=== PATIENT | female | born 1935 | race African-American/Black ===

== ENCOUNTER 2017-03-18 17:29 | Inpatient (IN) | payer OTHER ==
[~2017-03-18] VITALS: Ht 170.2 cm; Wt 92.6 kg
[~2017-03-18 17:29] MED LIST: ALBU6.7H2 IH; ASPI-1159 PO; BUDE6HFA IH; GLYB5TAB7 PO; HYDR25TA PO; LEVO75TA7 PO; LISI-604 PO; PANT20TA3; PRED10TA PO; THEO80SO; TIOT18CA3 IH; [UNRECOGNIZED DRUG - CODE] PO
[2017-03-18 20:52] LABS: HEMATOCRIT. 21.8 % (36.0-48.0); MEAN CORPUSCULAR HEMOGLOBIN 27.8 pg (28.0-32.0); MEAN CORPUSCULAR VOLUME 88.2 fL (81.0-99.0); MEAN PLATELET VOLUME 6.3 fl (7.4-10.4); PLATELET 409 x1000/uL (130-400); RED BLOOD CELL COUNT 2.47 mill/uL (4.2-5.4); RED CELL DISTRIBUTION WIDTH 15.9 % (11.6-14.6)
[2017-03-18 20:57] LABS: HEMOGLOBIN. 6.9 g/dL (12.0-16.0)
[2017-03-18 21:01] LABS: CHLORIDE 106 mEq/L (98-107)
[2017-03-18 21:06] LABS: CARBON DIOXIDE 30 mEq/L (21-32)
[2017-03-18 21:11] LABS: PROTHROMBIN TIME 10.5 sec
[2017-03-18 21:11] LABS: CLARITY URINE CLEAR (CLEAR); COLOR URINE YELLOW (YELLOW); GLUCOSE URINE NEGATIVE (NEGATIVE); KETONES URINE NEGATIVE (NEGATIVE); LEUKOCYTE ESTERASE URINE NEGATIVE (NEGATIVE); NITRITE URINE NEGATIVE (NEGATIVE); OCCULT BLOOD URINE NEGATIVE (NEGATIVE); PH URINE 5.5 (4.5-8.0); PROTEIN URINE NEGATIVE (NEGATIVE); SPECIFIC GRAVITY URINE 1.015 (1.005-1.030); UROBILINOGEN URINE 0.2 E.U./dL (0.2-1.0)
[2017-03-18 21:12] LABS: PLATELET ESTIMATE INCREASED
[2017-03-18 22:40] VITALS: BP 126/46
[2017-03-19] VITALS (7 sets, daily range): BP systolic 104–130; BP diastolic 33–51
[2017-03-19] MEDS ORDERED: DEXTROSE 50% WATER 50ML SYRINGE IV PRN (00:45)
[2017-03-19] MEDS ORDERED: FUROSEMIDE 40MG/4ML VIAL IVP NR (01:13)
[2017-03-19] MEDS: THEOPHYLLINE ANHYDROUS 80 MG/15 ML 120ML PO SCH ×3 (05:15→17:43)
[2017-03-19] MEDS: BLOOD SUGAR DIAGNOSTIC STRIP TEST SCH ×4 (06:20→21:00)
[2017-03-19] MEDS: INSULIN LISPRO 100 UNITS/ML SUBCUT SCH ×4 (06:20→21:00)
[2017-03-19] MEDS: GLYBURIDE 5MG TABLET PO SCH ×2 (06:41→17:43)
[2017-03-19] MEDS: LEVOTHYROXINE SODIUM 75MCG TABLET PO SCH (06:41)
[2017-03-19 07:10] LABS: HEMATOCRIT. 23.3 % (36.0-48.0); HEMOGLOBIN. 7.3 g/dL (12.0-16.0); MEAN CORPUSCULAR HEMOGLOBIN 27.9 pg (28.0-32.0); MEAN CORPUSCULAR VOLUME 89.1 fL (81.0-99.0); MEAN PLATELET VOLUME 6.4 fl (7.4-10.4); PLATELET 420 x1000/uL (130-400); RED BLOOD CELL COUNT 2.62 mill/uL (4.2-5.4); RED CELL DISTRIBUTION WIDTH 15.7 % (11.6-14.6)
[2017-03-19 07:20] LABS: CARBON DIOXIDE 30 mEq/L (21-32); CHLORIDE 106 mEq/L (98-107)
[2017-03-19] MEDS: IPRATROPIUM/ALBUTEROL 0.5-3(2.5)MG/3ML NEB HHN SCH ×3 (08:05→21:39)
[2017-03-19] MEDS ORDERED: LISINOPRIL 20MG TABLET PO SCH (09:00)
[2017-03-19] MEDS ORDERED: ASPIRIN 81MG EC TABLET PO SCH (09:00)
[2017-03-19] MEDS ORDERED: THEOPHYLLINE ANHYDROUS 200 MG PO SCH (09:00)
[2017-03-19] MEDS ORDERED: HYDROCHLOROTHIAZIDE 25MG TABLET PO SCH (09:00)
[2017-03-19 13:44] LABS: PLATELET ESTIMATE INCREASED
[2017-03-20] VITALS (15 sets, daily range): BP systolic 110–135; BP diastolic 31–69
[2017-03-20] MEDS: IPRATROPIUM/ALBUTEROL 0.5-3(2.5)MG/3ML NEB HHN SCH ×4 (03:11→21:16)
[2017-03-20] MEDS: ACETAMINOPHEN 325MG TABLET PO PRN ×2 (03:57→15:37)
[2017-03-20] MEDS: INSULIN LISPRO 100 UNITS/ML SUBCUT SCH ×4 (06:22→20:50)
[2017-03-20] MEDS: BLOOD SUGAR DIAGNOSTIC STRIP TEST SCH ×4 (06:22→20:50)
[2017-03-20] MEDS: LEVOTHYROXINE SODIUM 75MCG TABLET PO SCH (06:22)
[2017-03-20] MEDS: THEOPHYLLINE ANHYDROUS 80 MG/15 ML 120ML PO SCH ×5 (06:23→23:45)
[2017-03-20] MEDS: GLYBURIDE 5MG TABLET PO SCH ×2 (06:25→17:54)
[2017-03-20 06:42] LABS: MEAN CORPUSCULAR HEMOGLOBIN 28.5 pg (28.0-32.0); MEAN CORPUSCULAR VOLUME 87.7 fL (81.0-99.0); MEAN PLATELET VOLUME 6.4 fl (7.4-10.4); PLATELET 431 x1000/uL (130-400); RED BLOOD CELL COUNT 2.24 mill/uL (4.2-5.4); RED CELL DISTRIBUTION WIDTH 15.8 % (11.6-14.6)
[2017-03-20 07:07] LABS: CARBON DIOXIDE 30 mEq/L (21-32); CHLORIDE 105 mEq/L (98-107); TOTAL IRON BINDING CAPACITY 255 ug/dL (250-450)
[2017-03-20 07:37] LABS: HEMOGLOBIN. 6.4 g/dL (12.0-16.0)
[2017-03-20 07:38] LABS: HEMATOCRIT. 19.6 % (36.0-48.0)
[2017-03-20 10:27] LABS: PLATELET ESTIMATE INCREASED
[2017-03-20] MEDS: FERROUS SULFATE 325MG TABLET PO SCH ×2 (12:42→17:54)
[2017-03-20 15:31] LABS: CLARITY URINE CLEAR (CLEAR); COLOR URINE YELLOW (YELLOW); GLUCOSE URINE NEGATIVE (NEGATIVE); KETONES URINE NEGATIVE (NEGATIVE); LEUKOCYTE ESTERASE URINE 1+ (NEGATIVE); NITRITE URINE NEGATIVE (NEGATIVE); OCCULT BLOOD URINE NEGATIVE (NEGATIVE); PH URINE 5.5 (4.5-8.0); PROTEIN URINE NEGATIVE (NEGATIVE); SPECIFIC GRAVITY URINE 1.016 (1.005-1.030); UROBILINOGEN URINE 0.2 E.U./dL (0.2-1.0)
[2017-03-20] MEDS: ASCORBIC ACID 500 MG TABLET PO SCH (20:52)
[2017-03-20 21:11] LABS: HEMATOCRIT 25.6 % (36.0-48.0); HEMOGLOBIN 8.6 g/dL (12.0-16.0)
[2017-03-21] VITALS: BP 133/69
[2017-03-21] MEDS: IPRATROPIUM/ALBUTEROL 0.5-3(2.5)MG/3ML NEB HHN SCH ×4 (01:14→20:54)
[2017-03-21 04:00] VITALS: BP 119/51
[2017-03-21] MEDS: THEOPHYLLINE ANHYDROUS 80 MG/15 ML 120ML PO SCH ×4 (05:57→17:06)
[2017-03-21] MEDS: INSULIN LISPRO 100 UNITS/ML SUBCUT SCH ×4 (06:16→20:19)
[2017-03-21] MEDS: BLOOD SUGAR DIAGNOSTIC STRIP TEST SCH ×4 (06:16→20:19)
[2017-03-21] MEDS: GLYBURIDE 5MG TABLET PO SCH ×2 (06:37→17:04)
[2017-03-21] MEDS: LEVOTHYROXINE SODIUM 75MCG TABLET PO SCH (06:37)
[2017-03-21 07:08] LABS: HEMATOCRIT 25.8 % (36.0-48.0); HEMOGLOBIN 8.6 g/dL (12.0-16.0)
[2017-03-21 08:00] VITALS: BP 126/65
[2017-03-21] MEDS: ASCORBIC ACID 500 MG TABLET PO SCH ×2 (08:32→20:19)
[2017-03-21] MEDS: FERROUS SULFATE 325MG TABLET PO SCH ×3 (08:32→17:05)
[2017-03-21 12:00] VITALS: BP 117/61
[2017-03-21 16:00] VITALS: BP 142/73
[2017-03-21 20:00] VITALS: BP 138/62
[2017-03-22] VITALS: BP 142/68
[2017-03-22] MEDS: IPRATROPIUM/ALBUTEROL 0.5-3(2.5)MG/3ML NEB HHN SCH ×4 (01:15→19:51)
[2017-03-22 04:00] VITALS: BP 123/56
[2017-03-22] MEDS: THEOPHYLLINE ANHYDROUS 80 MG/15 ML 120ML PO SCH ×4 (05:53→23:36)
[2017-03-22] MEDS: BLOOD SUGAR DIAGNOSTIC STRIP TEST SCH ×4 (06:19→20:43)
[2017-03-22] MEDS: INSULIN LISPRO 100 UNITS/ML SUBCUT SCH ×4 (06:31→20:43)
[2017-03-22] MEDS: LEVOTHYROXINE SODIUM 75MCG TABLET PO SCH (06:32)
[2017-03-22] MEDS: GLYBURIDE 5MG TABLET PO SCH ×2 (06:32→16:56)
[2017-03-22 07:45] LABS: HEMATOCRIT. 27.2 % (36.0-48.0); HEMOGLOBIN. 8.8 g/dL (12.0-16.0); MEAN CORPUSCULAR HEMOGLOBIN 28.8 pg (28.0-32.0); MEAN CORPUSCULAR VOLUME 88.4 fL (81.0-99.0); MEAN PLATELET VOLUME 6.4 fl (7.4-10.4); PLATELET 490 x1000/uL (130-400); RED BLOOD CELL COUNT 3.07 mill/uL (4.2-5.4); RED CELL DISTRIBUTION WIDTH 15.5 % (11.6-14.6)
[2017-03-22 08:00] VITALS: BP 125/55
[2017-03-22] MEDS: FERROUS SULFATE 325MG TABLET PO SCH ×3 (08:14→16:56)
[2017-03-22] MEDS: ASCORBIC ACID 500 MG TABLET PO SCH ×2 (08:14→20:44)
[2017-03-22 09:20] LABS: CARBON DIOXIDE 33 mEq/L (21-32); CHLORIDE 103 mEq/L (98-107)
[2017-03-22 09:25] LABS: PLATELET ESTIMATE INCREASED
[2017-03-22 12:00] VITALS: BP 121/50
[2017-03-22 16:00] VITALS: BP 139/49
[2017-03-22 20:00] VITALS: BP 109/47
[2017-03-23] VITALS (9 sets, daily range): BP systolic 105–135; BP diastolic 41–66
[2017-03-23] MEDS: IPRATROPIUM/ALBUTEROL 0.5-3(2.5)MG/3ML NEB HHN SCH ×4 (01:10→21:08)
[2017-03-23] MEDS: THEOPHYLLINE ANHYDROUS 80 MG/15 ML 120ML PO SCH ×4 (06:17→23:49)
[2017-03-23] MEDS: BLOOD SUGAR DIAGNOSTIC STRIP TEST SCH ×3 (06:31→20:58)
[2017-03-23] MEDS: INSULIN LISPRO 100 UNITS/ML SUBCUT SCH ×4 (06:31→21:00)
[2017-03-23] MEDS: LEVOTHYROXINE SODIUM 75MCG TABLET PO SCH (06:31)
[2017-03-23] MEDS: GLYBURIDE 5MG TABLET PO SCH ×2 (06:31→21:46)
[2017-03-23] MEDS: FERROUS SULFATE 325MG TABLET PO SCH ×3 (09:23→17:57)
[2017-03-23] MEDS: ASCORBIC ACID 500 MG TABLET PO SCH ×2 (09:23→21:42)
[2017-03-23] MEDS ORDERED: DOCUSATE SODIUM 250MG CAPSULE PO PRN (13:15)
[2017-03-23] MEDS ORDERED: BISACODYL 10MG SUPP PR PRN (13:15)
[2017-03-23 15:22] LABS: HEMATOCRIT 28.5 % (36.0-48.0)
[2017-03-23 20:47] LABS: CHLORIDE 99 mEq/L (98-107)
[2017-03-23 21:03] LABS: CARBON DIOXIDE 35 mEq/L (21-32)
[2017-03-24] VITALS (8 sets, daily range): BP systolic 108–142; BP diastolic 50–69
[2017-03-24] MEDS: IPRATROPIUM/ALBUTEROL 0.5-3(2.5)MG/3ML NEB HHN SCH ×4 (01:11→20:45)
[2017-03-24] MEDS: BLOOD SUGAR DIAGNOSTIC STRIP TEST SCH ×4 (06:15→20:28)
[2017-03-24] MEDS: GLYBURIDE 5MG TABLET PO SCH ×2 (06:44→17:33)
[2017-03-24] MEDS: THEOPHYLLINE ANHYDROUS 80 MG/15 ML 120ML PO SCH ×2 (06:45→17:33)
[2017-03-24] MEDS: INSULIN LISPRO 100 UNITS/ML SUBCUT SCH ×4 (06:46→21:00)
[2017-03-24] MEDS ORDERED: LEVOTHYROXINE SODIUM 50MCG TABLET PO SCH (07:10)
[2017-03-24 07:11] LABS: HEMATOCRIT. 27.3 % (36.0-48.0); HEMOGLOBIN. 8.6 g/dL (12.0-16.0); MEAN CORPUSCULAR HEMOGLOBIN 28.2 pg (28.0-32.0); MEAN PLATELET VOLUME 6.5 fl (7.4-10.4); PLATELET 626 x1000/uL (130-400); RED BLOOD CELL COUNT 3.07 mill/uL (4.2-5.4); RED CELL DISTRIBUTION WIDTH 15.5 % (11.6-14.6)
[2017-03-24] MEDS: ASCORBIC ACID 500 MG TABLET PO SCH ×2 (09:03→20:59)
[2017-03-24] MEDS: FERROUS SULFATE 325MG TABLET PO SCH ×3 (09:03→17:33)
[2017-03-24 09:19] LABS: CARBON DIOXIDE 35 mEq/L (21-32); CHLORIDE 100 mEq/L (98-107)
[2017-03-24 09:20] LABS: T4 FREE 0.81 ng/dL (0.76-1.46)
[2017-03-24] MEDS: DILTIAZEM HCL 30MG TABLET PO SCH ×3 (10:00→21:00)
[2017-03-24] MEDS ORDERED: DILTIAZEM HCL 120MG CAPSULE CD 24HR PO SCH (10:00)
[2017-03-24 21:25] LABS: PLATELET ESTIMATE INCREASED
[2017-03-24] MEDS: ACETAMINOPHEN 325MG TABLET PO PRN (21:27)
[2017-03-25] VITALS: BP 132/55
[2017-03-25] MEDS: THEOPHYLLINE ANHYDROUS 80 MG/15 ML 120ML PO SCH ×3 (00:46→13:23)
[2017-03-25] MEDS: IPRATROPIUM/ALBUTEROL 0.5-3(2.5)MG/3ML NEB HHN SCH ×3 (02:01→14:59)
[2017-03-25 04:00] VITALS: BP 118/51
[2017-03-25] MEDS: DILTIAZEM HCL 30MG TABLET PO SCH ×2 (06:00→13:31)
[2017-03-25] MEDS: BLOOD SUGAR DIAGNOSTIC STRIP TEST SCH ×2 (06:18→12:10)
[2017-03-25] MEDS: GLYBURIDE 5MG TABLET PO SCH (06:24)
[2017-03-25] MEDS: INSULIN LISPRO 100 UNITS/ML SUBCUT SCH ×2 (06:27→12:40)
[2017-03-25 07:04] LABS: HEMATOCRIT. 27.2 % (36.0-48.0); HEMOGLOBIN. 8.9 g/dL (12.0-16.0); MEAN CORPUSCULAR HEMOGLOBIN 28.9 pg (28.0-32.0); MEAN CORPUSCULAR VOLUME 88.7 fL (81.0-99.0); MEAN PLATELET VOLUME 6.5 fl (7.4-10.4); PLATELET 535 x1000/uL (130-400); RED BLOOD CELL COUNT 3.06 mill/uL (4.2-5.4); RED CELL DISTRIBUTION WIDTH 15.2 % (11.6-14.6)
[2017-03-25] MEDS ORDERED: LEVOTHYROXINE SODIUM 100MCG TABLET PO SCH (07:10)
[2017-03-25 08:00] VITALS: BP_SYST 116; BP_SYST 120; BP_SYST 129; BP_DIAS 53; BP_DIAS 58; BP_DIAS 61
[2017-03-25] MEDS: FERROUS SULFATE 325MG TABLET PO SCH ×2 (08:39→13:23)
[2017-03-25] MEDS: ASCORBIC ACID 500 MG TABLET PO SCH (08:39)
[2017-03-25 08:59] LABS: CARBON DIOXIDE 35 mEq/L (21-32); CHLORIDE 99 mEq/L (98-107)
[2017-03-25 11:48] VITALS: BP 137/55
[2017-03-25 14:57] LABS: PLATELET ESTIMATE INCREASED
[2017-03-25 15:13] VITALS: BP 116/58
== END 2017-03-25 15:32 | disposition home or self-care (01) | DRG 811 ==
LOC: ER 17:58 → 8WST 21:20 → ENRESERV 21:56
PROVIDERS: ADMIT Internal Medicine; ATTEND Internal Medicine
PROC: 30233N1 Transfusion of Nonautologous Red Blood Cells into Peripheral Vein, Percutaneous Approach (ICD-10-PCS; principal; 2017-03-20)
DX: D50.9 Iron deficiency anemia, unspecified (principal); E43 Unspecified severe protein-calorie malnutrition; J96.10 Chronic respiratory failure, unspecified whether with hypoxia or hypercapnia; E11.9 Type 2 diabetes mellitus without complications; J44.9 Chronic obstructive pulmonary disease, unspecified; Z99.81 Dependence on supplemental oxygen; I10 Essential (primary) hypertension; D72.829 Elevated white blood cell count, unspecified; I47.1 Supraventricular tachycardia; R79.89 Other specified abnormal findings of blood chemistry; E03.9 Hypothyroidism, unspecified; I25.10 Atherosclerotic heart disease of native coronary artery without angina pectoris; F50.89 Other specified eating disorder; E78.5 Hyperlipidemia, unspecified; Z79.82 Long term (current) use of aspirin; Z85.038 Personal history of other malignant neoplasm of large intestine; Z85.3 Personal history of malignant neoplasm of breast; Z85.528 Personal history of other malignant neoplasm of kidney; Z86.010 Personal history of colon polyps; Z90.49 Acquired absence of other specified parts of digestive tract; Z90.5 Acquired absence of kidney; Z90.710 Acquired absence of both cervix and uterus; Z95.5 Presence of coronary angioplasty implant and graft; Z88.8 Allergy status to other drugs, medicaments and biological substances; Z68.32 Body mass index [BMI] 32.0-32.9, adult; Z79.51 Long term (current) use of inhaled steroids; Z79.899 Other long term (current) drug therapy
CPT/HCPCS: 36415; 71010; 80048; 80053; 80198; 81001; 81003; 82728; 82962; 83540; 83550; 83735; 84439; 84443; 84481; 85014; 85018; 85025; 85610; 86850; 86870; 86900; 86920; 87040; 93005; 93306; 94640; 99285; J1815; J7030; J7620; P9016

== ENCOUNTER 2017-08-25 19:13 | Inpatient (IN) | payer MEDICARE, OTHER ==
[~2017-08-25] VITALS: Ht 175.3 cm; Wt 93.0 kg
[~2017-08-25 19:13] MED LIST changes: -ALBU6.7H2 IH; +ALBU6.7H3 IH; -PRED10TA PO; +THEO100T15 PO; +THEO80EL3; -THEO80SO; -[UNRECOGNIZED DRUG - CODE] PO
[2017-08-25] MEDS ORDERED: ASPIRIN 81MG TABLET PO STA (19:22)
[2017-08-25] MEDS ORDERED: METHYLPREDNISOLONE SOD SUCC 125 MG/2 ML VIAL IV STA (19:22)
[2017-08-25] MEDS ORDERED: LEVOFLOXACIN 750MG PREMIX 150 ML IV ONE (19:30)
[2017-08-25] MEDS ORDERED: MAGNESIUM 2 G PREMIX 50 ML IV ONE (19:30)
[2017-08-25] MEDS ORDERED: IPRATROPIUM/ALBUTEROL 0.5-3(2.5)MG/3ML NEB HHN ONE (19:30)
[2017-08-25 19:51] LABS: BASOPHILS % 0.4 % (0.0-2.0); EOSINOPHILS % 3.8 % (0.0-5.0); HEMATOCRIT. 30.3 % (36.0-48.0); HEMOGLOBIN. 9.2 g/dL (12.0-16.0); LYMPHOCYTES % 17.8 % (20.0-50.0); MEAN CORPUSCULAR HEMOGLOBIN 24.6 pg (28.0-32.0); MEAN CORPUSCULAR VOLUME 81.3 fL (81.0-99.0); MEAN PLATELET VOLUME 6.5 fl (7.4-10.4); MONOCYTES % 13.3 % (2.0-8.0); NEUTROPHILS % 64.7 % (40.0-76.0); PLATELET 544 x1000/uL (130-400); RED BLOOD CELL COUNT 3.73 mill/uL (4.2-5.4); RED CELL DISTRIBUTION WIDTH 16.2 % (11.6-14.6)
[2017-08-25 19:56] LABS: BG BASE EXCESS 10.1 mmol/L (-2.0-2.0); BG BILEVEL POS AIRWAY PRESSURE 15/5; BG DEOXYHEMOGLOBIN 0.3 % (0.0-5.0); BG FRACTION INSPIRED OXYGEN 50; BG HCO3 ACT 37.6 mmol/L (22.0-26.0); BG METHEMOGLOBIN 0.2 % (0.0-1.5); BG OXYGEN SATURATION 99.7 % (92.0-98.5); BG OXYHEMOGLOBIN 99.5 % (94.0-97.0); BG PCO2 70.2 mmHg (35.0-45.0); BG PH 7.347 (7.350-7.450); BG PO2 263.9 mmHg (75.0-100.0); BG SAMPLE SITE RIGHT RADIAL; BG TOTAL HEMOGLOBIN 9.8 g/dL (12.0-18.0); BG VENT MODE MASK - BIPAP
[2017-08-25 19:56] LABS: PARTIAL THROMBOPLASTIN TIME 30.5 sec (23.4-31.0); PROTHROMBIN TIME 10.8 sec (9.4-11.6)
[2017-08-25 20:06] LABS: CARBON DIOXIDE 38 mEq/L (21-32); CHLORIDE 96 mEq/L (98-107); CREATINE KINASE 51 IU/L (26-192)
[2017-08-25 20:07] LABS: TROPONIN I < 0.02 ng/mL (0.00-0.04)
[2017-08-25 21:55] LABS: T4 FREE 0.4 ng/dL (0.76-1.46)
[2017-08-26] MEDS ORDERED: GUAIFENESIN 200MG/10ML SUGAR FREE UDC PO PRN (00:30)
[2017-08-26] MEDS ORDERED: CLONIDINE 0.1MG TABLET PO PRN (00:30)
[2017-08-26] MEDS ORDERED: DEXTROSE 50% WATER 50ML SYRINGE IV PRN (00:30)
[2017-08-26] MEDS ORDERED: IPRATROPIUM/ALBUTEROL 0.5-3(2.5)MG/3ML NEB INH PRN (00:30)
[2017-08-26] MEDS ORDERED: DOCUSATE SODIUM 100MG CAPSULE PO PRN (00:30)
[2017-08-26] MEDS ORDERED: ONDANSETRON HCL 4MG/2ML VIAL IV PRN (00:30)
[2017-08-26 01:08] LABS: CLARITY URINE CLOUDY (CLEAR); COLOR URINE YELLOW (YELLOW); KETONES URINE TRACE (NEGATIVE); LEUKOCYTE ESTERASE URINE 2+ (NEGATIVE); NITRITE URINE NEGATIVE (NEGATIVE); OCCULT BLOOD URINE NEGATIVE (NEGATIVE); PROTEIN URINE 1+ (NEGATIVE); SPECIFIC GRAVITY URINE 1.028 (1.005-1.030); UROBILINOGEN URINE 0.2 E.U./dL (0.2-1.0)
[2017-08-26 05:32] LABS: BASOPHILS % 0.7 % (0.0-2.0); EOSINOPHILS % 4.4 % (0.0-5.0); HEMATOCRIT. 28.8 % (36.0-48.0); HEMOGLOBIN. 8.8 g/dL (12.0-16.0); LYMPHOCYTES % 14.7 % (20.0-50.0); MEAN CORPUSCULAR HEMOGLOBIN 24.7 pg (28.0-32.0); MEAN CORPUSCULAR VOLUME 80.8 fL (81.0-99.0); MEAN PLATELET VOLUME 6.2 fl (7.4-10.4); NEUTROPHILS % 66.2 % (40.0-76.0); PLATELET 514 x1000/uL (130-400); RED BLOOD CELL COUNT 3.56 mill/uL (4.2-5.4); RED CELL DISTRIBUTION WIDTH 16.2 % (11.6-14.6)
[2017-08-26 05:44] LABS: CARBON DIOXIDE 38 mEq/L (21-32); CHLORIDE 95 mEq/L (98-107)
[2017-08-26 07:36] LABS: CLARITY URINE CLEAR (CLEAR); COLOR URINE YELLOW (YELLOW); KETONES URINE NEGATIVE (NEGATIVE); LEUKOCYTE ESTERASE URINE 1+ (NEGATIVE); NITRITE URINE NEGATIVE (NEGATIVE); OCCULT BLOOD URINE NEGATIVE (NEGATIVE); PROTEIN URINE TRACE (NEGATIVE); SPECIFIC GRAVITY URINE 1.027 (1.005-1.030); UROBILINOGEN URINE 0.2 E.U./dL (0.2-1.0)
[2017-08-26] MEDS: INSULIN LISPRO 100 UNITS/ML SUBCUT SCH ×4 (08:20→21:45)
[2017-08-26 08:22] LABS: *AMPHETAMINES SCREEN URINE NEGATIVE (NEGATIVE); *BARBITURATES SCREEN URINE NEGATIVE (NEGATIVE); *BENZODIAZEPINES SCREEN URINE NEGATIVE (NEGATIVE); *COCAINE SCREEN URINE NEGATIVE (NEGATIVE); CANNABINOID URINE SCREEN NEGATIVE (NEGATIVE); METHADONE URINE SCREEN NEGATIVE (NEGATIVE); OPIATES URINE SCREEN PRESUMTIVE POSITIVE (NEGATIVE); PHENCYCLIDINE URINE SCREEN NEGATIVE (NEGATIVE)
[2017-08-26 08:35] VITALS: BP 144/77
[2017-08-26] MEDS: BLOOD SUGAR DIAGNOSTIC STRIP TEST SCH ×4 (08:50→21:00)
[2017-08-26] MEDS: ACETAMINOPHEN 325MG TABLET PO PRN (10:50)
[2017-08-26] MEDS: OMEPRAZOLE 20MG CAPSULE EXTENDED RELEASE PO SCH (10:50)
[2017-08-26] MEDS: IPRATROPIUM/ALBUTEROL 0.5-3(2.5)MG/3ML NEB INH SCH ×2 (12:27→20:12)
[2017-08-26 12:30] VITALS: BP 145/49
[2017-08-26 12:34] LABS: BG BASE EXCESS 5.7 mmol/L (-2.0-2.0); BG CARBOXYHEMOGLOBIN 0.3 % (0.5-1.5); BG DEOXYHEMOGLOBIN 1.6 % (0.0-5.0); BG HCO3 ACT 32.6 mmol/L (22.0-26.0); BG METHEMOGLOBIN 0.3 % (0.0-1.5); BG OXYGEN SATURATION 98.4 % (92.0-98.5); BG OXYHEMOGLOBIN 97.8 % (94.0-97.0); BG PCO2 60.6 mmHg (35.0-45.0); BG PH 7.348 (7.350-7.450); BG PO2 118.7 mmHg (75.0-100.0); BG SAMPLE SITE RIGHT RADIAL; BG TOTAL HEMOGLOBIN 9.6 g/dL (12.0-18.0); BG VENT MODE NASAL CANNULA
[2017-08-26 14:50] VITALS: BP 144/71
[2017-08-26] MEDS: AMLODIPINE 5MG TABLET PO SCH ×2 (15:41→15:46)
[2017-08-26 16:30] VITALS: BP 153/72
[2017-08-26 19:44] VITALS: BP 133/66
[2017-08-26] MEDS: BUDESONIDE 0.5MG/2ML NEB HHN SCH (20:11)
[2017-08-26] MEDS: LISINOPRIL 10MG TABLET PO SCH (21:00)
[2017-08-26] MEDS ORDERED: ZOLPIDEM TARTRATE 5MG TABLET PO PRN (21:00)
[2017-08-26] MEDS: LEVOFLOXACIN 500MG PREMIX 100 ML IV SCH (21:59)
[2017-08-27 00:35] VITALS: BP 130/60
[2017-08-27] MEDS: IPRATROPIUM/ALBUTEROL 0.5-3(2.5)MG/3ML NEB INH SCH ×4 (01:47→20:04)
[2017-08-27 05:05] VITALS: BP 162/81
[2017-08-27] MEDS: OMEPRAZOLE 20MG CAPSULE EXTENDED RELEASE PO SCH (06:05)
[2017-08-27] MEDS: LEVOTHYROXINE SODIUM 50MCG TABLET PO SCH (06:05)
[2017-08-27 06:39] LABS: HEMATOCRIT. 27.7 % (36.0-48.0); HEMOGLOBIN. 8.6 g/dL (12.0-16.0); MEAN CORPUSCULAR HEMOGLOBIN 24.7 pg (28.0-32.0); MEAN PLATELET VOLUME 6.4 fl (7.4-10.4); PLATELET 489 x1000/uL (130-400); RED BLOOD CELL COUNT 3.46 mill/uL (4.2-5.4); RED CELL DISTRIBUTION WIDTH 16.1 % (11.6-14.6)
[2017-08-27] MEDS: BLOOD SUGAR DIAGNOSTIC STRIP TEST SCH ×4 (07:20→21:00)
[2017-08-27] MEDS: INSULIN LISPRO 100 UNITS/ML SUBCUT SCH ×4 (07:50→21:00)
[2017-08-27 08:00] VITALS: BP 157/69
[2017-08-27 08:03] LABS: CARBON DIOXIDE 36 mEq/L (21-32); CHLORIDE 97 mEq/L (98-107); TOTAL IRON BINDING CAPACITY 314 ug/dL (250-450)
[2017-08-27] MEDS: BUDESONIDE 0.5MG/2ML NEB HHN SCH ×2 (08:34→20:03)
[2017-08-27] MEDS: GLIMEPIRIDE 1MG TABLET PO SCH ×2 (08:58→18:44)
[2017-08-27] MEDS: AMLODIPINE 5MG TABLET PO SCH ×2 (08:58→21:00)
[2017-08-27] MEDS: LINAGLIPTIN 5MG TABLET PO SCH (08:58)
[2017-08-27] MEDS: LISINOPRIL 10MG TABLET PO SCH ×2 (08:58→21:00)
[2017-08-27] MEDS: FERROUS SULFATE 325MG TABLET PO SCH ×2 (12:50→18:44)
[2017-08-27] MEDS: LIDOCAINE 5% PATCH TOP SCH (15:48)
[2017-08-27 16:00] VITALS: BP 94/41
[2017-08-27] MEDS: HYDROCODONE/ACETAMINOPHEN 5/325MG TABLET PO PRN (16:34)
[2017-08-27 20:21] VITALS: BP 104/43
[2017-08-27 21:03] LABS: PLATELET ESTIMATE INCREASED
[2017-08-27] MEDS: THEOPHYLLINE ANHYDROUS 80 MG/15 ML 120ML PO SCH (21:35)
[2017-08-27] MEDS: LEVOFLOXACIN 500MG PREMIX 100 ML IV SCH (22:36)
[2017-08-27 23:33] VITALS: BP 98/32
[2017-08-28] MEDS ORDERED: DIPHENHYDRAMINE 25MG CAPSULE PO SCH (00:30)
[2017-08-28] MEDS ORDERED: SODIUM CHLORIDE 0.9% 250 ML IV ONE (00:30)
[2017-08-28] MEDS: IPRATROPIUM/ALBUTEROL 0.5-3(2.5)MG/3ML NEB INH SCH ×4 (02:20→20:23)
[2017-08-28 04:10] VITALS: BP 99/48
[2017-08-28] MEDS: BLOOD SUGAR DIAGNOSTIC STRIP TEST SCH ×4 (07:25→21:00)
[2017-08-28] MEDS: THEOPHYLLINE ANHYDROUS 80 MG/15 ML 120ML PO SCH ×3 (07:40→21:10)
[2017-08-28] MEDS: OMEPRAZOLE 20MG CAPSULE EXTENDED RELEASE PO SCH (07:40)
[2017-08-28] MEDS: LEVOTHYROXINE SODIUM 50MCG TABLET PO SCH (07:40)
[2017-08-28] MEDS: INSULIN LISPRO 100 UNITS/ML SUBCUT SCH ×4 (07:45→21:10)
[2017-08-28 07:47] LABS: HEMATOCRIT. 28.2 % (36.0-48.0); HEMOGLOBIN. 8.7 g/dL (12.0-16.0); MEAN CORPUSCULAR HEMOGLOBIN 24.9 pg (28.0-32.0); MEAN CORPUSCULAR VOLUME 81.1 fL (81.0-99.0); MEAN PLATELET VOLUME 6.7 fl (7.4-10.4); PLATELET 469 x1000/uL (130-400); RED BLOOD CELL COUNT 3.48 mill/uL (4.2-5.4)
[2017-08-28 08:00] VITALS: BP 85/35
[2017-08-28] MEDS: BUDESONIDE 0.5MG/2ML NEB HHN SCH ×2 (08:30→20:23)
[2017-08-28 08:55] VITALS: BP 103/36
[2017-08-28] MEDS: AMLODIPINE 5MG TABLET PO SCH (08:55)
[2017-08-28] MEDS: LISINOPRIL 10MG TABLET PO SCH (09:00)
[2017-08-28] MEDS: LIDOCAINE 5% PATCH TOP SCH (09:10)
[2017-08-28] MEDS: FERROUS SULFATE 325MG TABLET PO SCH ×3 (09:11→17:50)
[2017-08-28] MEDS: GLIMEPIRIDE 1MG TABLET PO SCH ×2 (09:11→17:56)
[2017-08-28] MEDS: LINAGLIPTIN 5MG TABLET PO SCH (09:11)
[2017-08-28] MEDS ORDERED: SODIUM CHLORIDE 0.9% 300 ML IV SCH (09:30)
[2017-08-28] MEDS ORDERED: SODIUM CHLORIDE 0.9% 300 ML IV ONE (09:30)
[2017-08-28 12:11] VITALS: BP 98/56
[2017-08-28 12:31] LABS: PLATELET ESTIMATE INCREASED
[2017-08-28 15:57] VITALS: BP 98/41
[2017-08-28 20:01] VITALS: BP 117/38
[2017-08-28] MEDS ORDERED: LEVOFLOXACIN 500MG PREMIX 100 ML IV SCH (21:00)
[2017-08-29 00:32] VITALS: BP 127/56
[2017-08-29] MEDS: IPRATROPIUM/ALBUTEROL 0.5-3(2.5)MG/3ML NEB INH SCH ×4 (01:16→21:50)
[2017-08-29 04:50] VITALS: BP 127/54
[2017-08-29] MEDS: LEVOTHYROXINE SODIUM 50MCG TABLET PO SCH (06:03)
[2017-08-29] MEDS: OMEPRAZOLE 20MG CAPSULE EXTENDED RELEASE PO SCH (06:03)
[2017-08-29] MEDS: THEOPHYLLINE ANHYDROUS 80 MG/15 ML 120ML PO SCH ×3 (06:03→21:40)
[2017-08-29] MEDS: BLOOD SUGAR DIAGNOSTIC STRIP TEST SCH ×4 (06:28→21:00)
[2017-08-29 07:39] LABS: HEMATOCRIT. 27.1 % (36.0-48.0); HEMOGLOBIN. 8.2 g/dL (12.0-16.0); MEAN CORPUSCULAR HEMOGLOBIN 24.4 pg (28.0-32.0); MEAN CORPUSCULAR VOLUME 80.2 fL (81.0-99.0); MEAN PLATELET VOLUME 6.3 fl (7.4-10.4); PLATELET 468 x1000/uL (130-400); RED BLOOD CELL COUNT 3.37 mill/uL (4.2-5.4); RED CELL DISTRIBUTION WIDTH 16.3 % (11.6-14.6)
[2017-08-29] MEDS: INSULIN LISPRO 100 UNITS/ML SUBCUT SCH ×4 (07:50→21:40)
[2017-08-29 08:00] VITALS: BP 109/49
[2017-08-29] MEDS: BUDESONIDE 0.5MG/2ML NEB HHN SCH (08:23)
[2017-08-29] MEDS: GLIMEPIRIDE 1MG TABLET PO SCH ×2 (09:02→18:24)
[2017-08-29] MEDS: FERROUS SULFATE 325MG TABLET PO SCH ×4 (09:02→18:25)
[2017-08-29] MEDS: LINAGLIPTIN 5MG TABLET PO SCH (09:02)
[2017-08-29 10:19] LABS: CARBON DIOXIDE 32 mEq/L (21-32); CHLORIDE 101 mEq/L (98-107); THEOPHYLLINE 5.4 ug/mL (10-20)
[2017-08-29 12:00] VITALS: BP 132/55
[2017-08-29 14:40] LABS: PLATELET ESTIMATE INCREASED
[2017-08-29 16:00] VITALS: BP 142/64
[2017-08-29 20:00] VITALS: BP 143/65
[2017-08-29] MEDS: LEVOFLOXACIN 500MG TABLET PO SCH (21:41)
[2017-08-30] VITALS: BP 141/62
[2017-08-30] MEDS: ACETAMINOPHEN 325MG TABLET PO PRN (01:41)
[2017-08-30] MEDS: IPRATROPIUM/ALBUTEROL 0.5-3(2.5)MG/3ML NEB INH SCH ×4 (03:57→21:05)
[2017-08-30 04:00] VITALS: BP 145/69
[2017-08-30 06:55] LABS: HEMATOCRIT. 27.8 % (36.0-48.0); HEMOGLOBIN. 8.2 g/dL (12.0-16.0); MEAN CORPUSCULAR HEMOGLOBIN 23.8 pg (28.0-32.0); MEAN CORPUSCULAR VOLUME 80.8 fL (81.0-99.0); MEAN PLATELET VOLUME 6.3 fl (7.4-10.4); PLATELET 503 x1000/uL (130-400); RED BLOOD CELL COUNT 3.44 mill/uL (4.2-5.4); RED CELL DISTRIBUTION WIDTH 16.1 % (11.6-14.6)
[2017-08-30] MEDS: THEOPHYLLINE ANHYDROUS 80 MG/15 ML 120ML PO SCH ×3 (06:56→21:55)
[2017-08-30] MEDS: OMEPRAZOLE 20MG CAPSULE EXTENDED RELEASE PO SCH (06:56)
[2017-08-30] MEDS: BLOOD SUGAR DIAGNOSTIC STRIP TEST SCH ×4 (06:56→21:55)
[2017-08-30] MEDS: LEVOTHYROXINE SODIUM 50MCG TABLET PO SCH (06:56)
[2017-08-30 07:38] LABS: CARBON DIOXIDE 35 mEq/L (21-32); CHLORIDE 100 mEq/L (98-107)
[2017-08-30] MEDS: INSULIN LISPRO 100 UNITS/ML SUBCUT SCH ×4 (07:50→21:00)
[2017-08-30] MEDS: FERROUS SULFATE 325MG TABLET PO SCH ×4 (07:50→18:24)
[2017-08-30 07:56] VITALS: BP 167/72
[2017-08-30] MEDS: GLIMEPIRIDE 1MG TABLET PO SCH ×2 (08:47→18:24)
[2017-08-30] MEDS: LINAGLIPTIN 5MG TABLET PO SCH (08:48)
[2017-08-30 12:14] VITALS: BP 138/55
[2017-08-30] MEDS: DOCUSATE SODIUM 100MG CAPSULE PO SCH (13:29)
[2017-08-30] MEDS ORDERED: EPOETIN ALFA 10000UNITS/ML VIAL SUBCUT SCH (14:00)
[2017-08-30 16:00] VITALS: BP 149/64
[2017-08-30 20:00] VITALS: BP 159/67
[2017-08-30] MEDS: LEVOFLOXACIN 500MG TABLET PO SCH (21:55)
[2017-08-31] VITALS (7 sets, daily range): BP systolic 115–160; BP diastolic 59–82
[2017-08-31] MEDS: HYDROCODONE/ACETAMINOPHEN 5/325MG TABLET PO PRN (01:06)
[2017-08-31] MEDS: IPRATROPIUM/ALBUTEROL 0.5-3(2.5)MG/3ML NEB INH SCH ×4 (01:20→21:39)
[2017-08-31 06:16] LABS: CHLORIDE 99 mEq/L (98-107)
[2017-08-31 06:17] LABS: HEMATOCRIT. 30.6 % (36.0-48.0); HEMOGLOBIN. 8.9 g/dL (12.0-16.0); MEAN CORPUSCULAR HEMOGLOBIN 23.8 pg (28.0-32.0); MEAN CORPUSCULAR VOLUME 81.3 fL (81.0-99.0); MEAN PLATELET VOLUME 6.2 fl (7.4-10.4); PLATELET 536 x1000/uL (130-400); RED BLOOD CELL COUNT 3.76 mill/uL (4.2-5.4); RED CELL DISTRIBUTION WIDTH 16.4 % (11.6-14.6)
[2017-08-31] MEDS: OMEPRAZOLE 20MG CAPSULE EXTENDED RELEASE PO SCH (06:33)
[2017-08-31] MEDS: LEVOTHYROXINE SODIUM 50MCG TABLET PO SCH (06:33)
[2017-08-31] MEDS: THEOPHYLLINE ANHYDROUS 80 MG/15 ML 120ML PO SCH ×3 (06:34→21:20)
[2017-08-31] MEDS: BLOOD SUGAR DIAGNOSTIC STRIP TEST SCH ×4 (06:34→21:17)
[2017-08-31 06:56] LABS: CARBON DIOXIDE 31 mEq/L (21-32)
[2017-08-31] MEDS: INSULIN LISPRO 100 UNITS/ML SUBCUT SCH ×4 (07:06→21:18)
[2017-08-31] MEDS: GLIMEPIRIDE 1MG TABLET PO SCH ×2 (09:02→17:54)
[2017-08-31] MEDS: DOCUSATE SODIUM 100MG CAPSULE PO SCH (09:02)
[2017-08-31] MEDS: LINAGLIPTIN 5MG TABLET PO SCH (09:02)
[2017-08-31] MEDS: FERROUS SULFATE 325MG TABLET PO SCH ×3 (09:02→17:54)
[2017-08-31 10:22] LABS: PLATELET ESTIMATE INCREASED
[2017-08-31] MEDS: HYDROCORTISONE SOD SUCCINATE 100 MG/2 ML VIAL IV SCH ×2 (13:35→21:19)
[2017-08-31 13:43] LABS: PLATELET ESTIMATE INCREASED
[2017-08-31] MEDS: LEVOFLOXACIN 500MG TABLET PO SCH (21:19)
[2017-08-31] MEDS: BUDESONIDE 0.5MG/2ML NEB HHN SCH (21:39)
[2017-09-01] VITALS: BP 158/83
[2017-09-01] MEDS: IPRATROPIUM/ALBUTEROL 0.5-3(2.5)MG/3ML NEB INH SCH ×5 (03:10→20:14)
[2017-09-01] MEDS: HYDROCODONE/ACETAMINOPHEN 5/325MG TABLET PO PRN (03:43)
[2017-09-01 04:00] VITALS: BP 159/82
[2017-09-01] MEDS: OMEPRAZOLE 20MG CAPSULE EXTENDED RELEASE PO SCH (06:34)
[2017-09-01] MEDS: LEVOTHYROXINE SODIUM 50MCG TABLET PO SCH (06:34)
[2017-09-01] MEDS: THEOPHYLLINE ANHYDROUS 80 MG/15 ML 120ML PO SCH ×3 (06:34→21:26)
[2017-09-01] MEDS: HYDROCORTISONE SOD SUCCINATE 100 MG/2 ML VIAL IV SCH ×2 (06:34→13:12)
[2017-09-01] MEDS: BLOOD SUGAR DIAGNOSTIC STRIP TEST SCH ×5 (06:34→21:31)
[2017-09-01 06:48] LABS: HEMATOCRIT. 30.9 % (36.0-48.0); HEMOGLOBIN. 9.5 g/dL (12.0-16.0); MEAN CORPUSCULAR VOLUME 81.4 fL (81.0-99.0); MEAN PLATELET VOLUME 6.4 fl (7.4-10.4); PLATELET 530 x1000/uL (130-400); RED CELL DISTRIBUTION WIDTH 16.4 % (11.6-14.6)
[2017-09-01] MEDS: GLIMEPIRIDE 1MG TABLET PO SCH ×2 (08:38→17:07)
[2017-09-01] MEDS: DOCUSATE SODIUM 100MG CAPSULE PO SCH (08:38)
[2017-09-01] MEDS: FERROUS SULFATE 325MG TABLET PO SCH ×3 (08:38→17:10)
[2017-09-01] MEDS: LINAGLIPTIN 5MG TABLET PO SCH (08:38)
[2017-09-01] MEDS: INSULIN LISPRO 100 UNITS/ML SUBCUT SCH ×4 (08:38→21:34)
[2017-09-01] MEDS: BUDESONIDE 0.5MG/2ML NEB HHN SCH ×2 (09:33→20:14)
[2017-09-01 10:14] LABS: CARBON DIOXIDE 34 mEq/L (21-32); CHLORIDE 96 mEq/L (98-107)
[2017-09-01] MEDS: FUROSEMIDE 40MG TABLET PO SCH (13:09)
[2017-09-01 16:00] VITALS: BP 135/58
[2017-09-01 16:18] LABS: PLATELET ESTIMATE INCREASED
[2017-09-01 21:05] VITALS: BP 145/65
[2017-09-01] MEDS: LISINOPRIL 20MG TABLET PO SCH (21:26)
[2017-09-01] MEDS: LEVOFLOXACIN 500MG TABLET PO SCH (21:29)
[2017-09-01] MEDS ORDERED: HYDROCORTISONE SOD SUCCINATE 100 MG/2 ML VIAL IV SCH (22:00)
[2017-09-02] VITALS: BP 101/37
[2017-09-02] MEDS: IPRATROPIUM/ALBUTEROL 0.5-3(2.5)MG/3ML NEB INH SCH ×5 (01:12→23:43)
[2017-09-02 04:09] VITALS: BP 115/48
[2017-09-02] MEDS: THEOPHYLLINE ANHYDROUS 80 MG/15 ML 120ML PO SCH ×3 (06:37→21:06)
[2017-09-02] MEDS: LEVOTHYROXINE SODIUM 50MCG TABLET PO SCH (06:38)
[2017-09-02] MEDS: OMEPRAZOLE 20MG CAPSULE EXTENDED RELEASE PO SCH (06:38)
[2017-09-02 06:41] LABS: HEMATOCRIT. 26.3 % (36.0-48.0); MEAN CORPUSCULAR HEMOGLOBIN 24.7 pg (28.0-32.0); MEAN CORPUSCULAR VOLUME 81.1 fL (81.0-99.0); MEAN PLATELET VOLUME 6.1 fl (7.4-10.4); PLATELET 455 x1000/uL (130-400); RED BLOOD CELL COUNT 3.25 mill/uL (4.2-5.4); RED CELL DISTRIBUTION WIDTH 16.5 % (11.6-14.6)
[2017-09-02] MEDS: BLOOD SUGAR DIAGNOSTIC STRIP TEST SCH ×4 (06:44→21:17)
[2017-09-02 07:19] LABS: CHLORIDE 94 mEq/L (98-107)
[2017-09-02 07:35] LABS: CARBON DIOXIDE 38 mEq/L (21-32)
[2017-09-02] MEDS: INSULIN LISPRO 100 UNITS/ML SUBCUT SCH ×4 (07:50→21:22)
[2017-09-02] MEDS: FERROUS SULFATE 325MG TABLET PO SCH ×3 (07:50→17:18)
[2017-09-02 08:00] VITALS: BP 108/46
[2017-09-02] MEDS: DOCUSATE SODIUM 100MG CAPSULE PO SCH (08:42)
[2017-09-02] MEDS: GLIMEPIRIDE 1MG TABLET PO SCH ×2 (08:42→17:37)
[2017-09-02] MEDS: LINAGLIPTIN 5MG TABLET PO SCH (08:43)
[2017-09-02] MEDS: FUROSEMIDE 40MG TABLET PO SCH (08:43)
[2017-09-02] MEDS: LISINOPRIL 20MG TABLET PO SCH ×2 (08:45→21:05)
[2017-09-02] MEDS ORDERED: PREDNISONE 20MG TABLET PO SCH (09:00)
[2017-09-02 10:52] LABS: PLATELET ESTIMATE INCREASED
[2017-09-02 11:36] LABS: BG BASE EXCESS -0.9 mmol/L (-2.0-2.0); BG CARBOXYHEMOGLOBIN 0.7 % (0.5-1.5); BG DEOXYHEMOGLOBIN 2.5 % (0.0-5.0); BG FRACTION INSPIRED OXYGEN 32; BG HCO3 ACT 24.4 mmol/L (22.0-26.0); BG METHEMOGLOBIN 0.3 % (0.0-1.5); BG OXYGEN SATURATION 97.5 % (92.0-98.5); BG OXYHEMOGLOBIN 96.5 % (94.0-97.0); BG PCO2 42.8 mmHg (35.0-45.0); BG PH 7.373 (7.350-7.450); BG PO2 107.8 mmHg (75.0-100.0); BG SAMPLE SITE RIGHT BRACHIAL; BG TOTAL HEMOGLOBIN 8.5 g/dL (12.0-18.0); BG VENT MODE NASAL CANNULA
[2017-09-02 12:00] VITALS: BP 123/54
[2017-09-02] MEDS: BUDESONIDE 0.5MG/2ML NEB HHN SCH ×3 (12:21→23:43)
[2017-09-02] MEDS ORDERED: EPOETIN ALFA 10000UNITS/ML VIAL SUBCUT NR (13:00)
[2017-09-02] MEDS ORDERED: TERBUTALINE SULFATE 1MG/ML VIAL SUBCUT NR (14:00)
[2017-09-02] MEDS: METHYLPREDNISOLONE SOD SUCC 125 MG/2 ML VIAL IV SCH ×2 (15:17→21:06)
[2017-09-02 16:00] VITALS: BP 113/45
[2017-09-02] MEDS: MONTELUKAST SODIUM 10MG TABLET PO SCH (17:36)
[2017-09-02 20:06] VITALS: BP 143/62
[2017-09-02] MEDS: FAMOTIDINE 20MG TABLET PO SCH (21:06)
[2017-09-02] MEDS: LEVOFLOXACIN 500MG TABLET PO SCH (21:06)
[2017-09-02] MEDS ORDERED: INSULIN REGULAR (HUMULIN R) 300UNITS/3ML SUBCUT NR (23:00)
[2017-09-03] VITALS: BP 119/65
[2017-09-03] MEDS: IPRATROPIUM/ALBUTEROL 0.5-3(2.5)MG/3ML NEB INH SCH ×4 (03:35→21:16)
[2017-09-03 04:00] VITALS: BP 116/47
[2017-09-03] MEDS: LEVOTHYROXINE SODIUM 50MCG TABLET PO SCH (06:25)
[2017-09-03] MEDS: METHYLPREDNISOLONE SOD SUCC 125 MG/2 ML VIAL IV SCH (06:25)
[2017-09-03] MEDS: THEOPHYLLINE ANHYDROUS 80 MG/15 ML 120ML PO SCH ×3 (06:26→21:10)
[2017-09-03] MEDS: BLOOD SUGAR DIAGNOSTIC STRIP TEST SCH ×4 (06:39→21:20)
[2017-09-03 07:02] LABS: BASOPHILS % 0.2 % (0.0-2.0); HEMATOCRIT. 26.5 % (36.0-48.0); HEMOGLOBIN. 8.3 g/dL (12.0-16.0); LYMPHOCYTES % 10.2 % (20.0-50.0); MEAN CORPUSCULAR HEMOGLOBIN 25.1 pg (28.0-32.0); MEAN CORPUSCULAR VOLUME 80.5 fL (81.0-99.0); MEAN PLATELET VOLUME 6.2 fl (7.4-10.4); MONOCYTES % 7.8 % (2.0-8.0); NEUTROPHILS % 81.8 % (40.0-76.0); PLATELET 472 x1000/uL (130-400); RED BLOOD CELL COUNT 3.29 mill/uL (4.2-5.4); RED CELL DISTRIBUTION WIDTH 16.9 % (11.6-14.6)
[2017-09-03] MEDS: FERROUS SULFATE 325MG TABLET PO SCH ×3 (07:50→17:30)
[2017-09-03 08:00] VITALS: BP 150/68
[2017-09-03] MEDS: BUDESONIDE 0.5MG/2ML NEB HHN SCH (08:00)
[2017-09-03 08:28] LABS: CARBON DIOXIDE 36 mEq/L (21-32); CHLORIDE 95 mEq/L (98-107)
[2017-09-03 08:33] LABS: THEOPHYLLINE 2.2 ug/mL (10-20)
[2017-09-03] MEDS: FUROSEMIDE 40MG TABLET PO SCH (08:41)
[2017-09-03] MEDS: FAMOTIDINE 20MG TABLET PO SCH ×2 (08:41→21:10)
[2017-09-03] MEDS: LISINOPRIL 20MG TABLET PO SCH ×2 (08:41→21:10)
[2017-09-03] MEDS: GLIMEPIRIDE 1MG TABLET PO SCH ×2 (08:41→17:30)
[2017-09-03] MEDS: LINAGLIPTIN 5MG TABLET PO SCH (08:41)
[2017-09-03] MEDS: DOCUSATE SODIUM 100MG CAPSULE PO SCH (08:41)
[2017-09-03] MEDS: INSULIN LISPRO 100 UNITS/ML SUBCUT SCH ×4 (08:49→21:30)
[2017-09-03 12:00] VITALS: BP 143/74
[2017-09-03] MEDS: METHYLPREDNISOLONE SOD SUCC 40 MG/ML VIAL IV SCH ×2 (13:25→21:10)
[2017-09-03 16:00] VITALS: BP 136/72
[2017-09-03] MEDS: MONTELUKAST SODIUM 10MG TABLET PO SCH (17:30)
[2017-09-03 20:10] VITALS: BP 148/60
[2017-09-03] MEDS: LEVOFLOXACIN 500MG TABLET PO SCH (20:51)
[2017-09-03] MEDS: ACETAMINOPHEN 325MG TABLET PO PRN (20:51)
[2017-09-04] VITALS: BP 124/64
[2017-09-04] MEDS: IPRATROPIUM/ALBUTEROL 0.5-3(2.5)MG/3ML NEB INH SCH ×3 (01:59→14:29)
[2017-09-04 04:00] VITALS: BP 133/53
[2017-09-04] MEDS: METHYLPREDNISOLONE SOD SUCC 40 MG/ML VIAL IV SCH (06:22)
[2017-09-04] MEDS: LEVOTHYROXINE SODIUM 50MCG TABLET PO SCH (06:22)
[2017-09-04] MEDS: THEOPHYLLINE ANHYDROUS 80 MG/15 ML 120ML PO SCH ×2 (06:23→14:53)
[2017-09-04] MEDS: BLOOD SUGAR DIAGNOSTIC STRIP TEST SCH ×3 (06:30→17:52)
[2017-09-04 07:07] LABS: BASOPHILS % 0.1 % (0.0-2.0); HEMATOCRIT. 28.2 % (36.0-48.0); HEMOGLOBIN. 8.6 g/dL (12.0-16.0); LYMPHOCYTES % 10.2 % (20.0-50.0); MEAN CORPUSCULAR HEMOGLOBIN 24.6 pg (28.0-32.0); MEAN CORPUSCULAR VOLUME 80.3 fL (81.0-99.0); MEAN PLATELET VOLUME 6.4 fl (7.4-10.4); MONOCYTES % 13.8 % (2.0-8.0); NEUTROPHILS % 75.9 % (40.0-76.0); PLATELET 523 x1000/uL (130-400); RED BLOOD CELL COUNT 3.51 mill/uL (4.2-5.4); RED CELL DISTRIBUTION WIDTH 17.8 % (11.6-14.6)
[2017-09-04 07:33] LABS: CARBON DIOXIDE 37 mEq/L (21-32); CHLORIDE 94 mEq/L (98-107)
[2017-09-04] MEDS: FERROUS SULFATE 325MG TABLET PO SCH ×3 (07:50→17:23)
[2017-09-04] MEDS: INSULIN LISPRO 100 UNITS/ML SUBCUT SCH (07:53)
[2017-09-04 08:13] VITALS: BP 141/67
[2017-09-04] MEDS: LISINOPRIL 20MG TABLET PO SCH (09:01)
[2017-09-04] MEDS: FUROSEMIDE 40MG TABLET PO SCH (09:01)
[2017-09-04] MEDS: GLIMEPIRIDE 2MG TABLET PO SCH ×2 (09:01→17:52)
[2017-09-04] MEDS: DOCUSATE SODIUM 100MG CAPSULE PO SCH (09:01)
[2017-09-04] MEDS: LINAGLIPTIN 5MG TABLET PO SCH (09:01)
[2017-09-04] MEDS: FAMOTIDINE 20MG TABLET PO SCH (09:01)
[2017-09-04] MEDS ORDERED: IOHEXOL-300 100 ML BOTTLE ONE (10:41)
[2017-09-04 11:51] VITALS: BP 138/74
[2017-09-04 12:17] VITALS: BP 147/67
[2017-09-04] MEDS ORDERED: INSULIN LISPRO 100 UNITS/ML SUBCUT NR (13:30)
[2017-09-04 16:11] VITALS: BP 120/53
[2017-09-04] MEDS ORDERED: PREDNISONE 20MG TABLET PO SCH (17:00)
[2017-09-04] MEDS ORDERED: INSULIN LISPRO 100 UNITS/ML SUBCUT SCH (17:50)
[2017-09-04] MEDS: MONTELUKAST SODIUM 10MG TABLET PO SCH (17:52)
== END 2017-09-04 18:30 | disposition home or self-care (01) | DRG 871 ==
LOC: ER 19:33 → EDBEDREQ 22:29 → EDBEDREQSVC 22:29 → SUPCPDRO 08-26 00:20 → ENRESERV 08-26 07:46 → 6WST 08-26 08:26
PROVIDERS: ADMIT Family Medicine Adult Medicine; ATTEND Family Medicine Adult Medicine
PROC: 5A09357 Assistance with Respiratory Ventilation, Less than 24 Consecutive Hours, Continuous Positive Airway Pressure (ICD-10-PCS; principal; 2017-08-27)
PROC: 5A09357 Assistance with Respiratory Ventilation, Less than 24 Consecutive Hours, Continuous Positive Airway Pressure (ICD-10-PCS; 2017-08-29)
PROC: 5A09357 Assistance with Respiratory Ventilation, Less than 24 Consecutive Hours, Continuous Positive Airway Pressure (ICD-10-PCS; 2017-08-30)
PROC: 5A09357 Assistance with Respiratory Ventilation, Less than 24 Consecutive Hours, Continuous Positive Airway Pressure (ICD-10-PCS; 2017-09-01)
PROC: 5A09357 Assistance with Respiratory Ventilation, Less than 24 Consecutive Hours, Continuous Positive Airway Pressure (ICD-10-PCS; 2017-09-02)
DX: A41.9 Sepsis, unspecified organism (principal); J96.20 Acute and chronic respiratory failure, unspecified whether with hypoxia or hypercapnia; E46 Unspecified protein-calorie malnutrition; E87.2 Acidosis; I95.9 Hypotension, unspecified; J44.1 Chronic obstructive pulmonary disease with (acute) exacerbation; C94.6 Myelodysplastic disease, not elsewhere classified; E11.65 Type 2 diabetes mellitus with hyperglycemia; E11.22 Type 2 diabetes mellitus with diabetic chronic kidney disease; J96.22 Acute and chronic respiratory failure with hypercapnia; J45.901 Unspecified asthma with (acute) exacerbation; E66.2 Morbid (severe) obesity with alveolar hypoventilation; N39.0 Urinary tract infection, site not specified; Z99.81 Dependence on supplemental oxygen; E03.9 Hypothyroidism, unspecified; T38.0X5A Adverse effect of glucocorticoids and synthetic analogues, initial encounter; J06.9 Acute upper respiratory infection, unspecified; E06.3 Autoimmune thyroiditis; D50.9 Iron deficiency anemia, unspecified; N18.3 Chronic kidney disease, stage 3 (moderate); I25.10 Atherosclerotic heart disease of native coronary artery without angina pectoris; I12.9 Hypertensive chronic kidney disease with stage 1 through stage 4 chronic kidney disease, or unspecified chronic kidney disease; D47.3 Essential (hemorrhagic) thrombocythemia; E78.5 Hyperlipidemia, unspecified; G89.29 Other chronic pain; I45.10 Unspecified right bundle-branch block; K21.9 Gastro-esophageal reflux disease without esophagitis; Z79.84 Long term (current) use of oral hypoglycemic drugs; Z79.899 Other long term (current) drug therapy; Z83.3 Family history of diabetes mellitus; Z85.038 Personal history of other malignant neoplasm of large intestine; Z85.3 Personal history of malignant neoplasm of breast; Z85.528 Personal history of other malignant neoplasm of kidney; Z86.010 Personal history of colon polyps; Z87.891 Personal history of nicotine dependence; Z90.5 Acquired absence of kidney; Z90.710 Acquired absence of both cervix and uterus; Z95.5 Presence of coronary angioplasty implant and graft; Z68.30 Body mass index [BMI] 30.0-30.9, adult
CPT/HCPCS: 36415; 36600; 71045; 71260; 80048; 80053; 80198; 80305; 81001; 82375; 82550; 82805; 82962; 83036; 83520; 83540; 83550; 83605; 83690; 83735; 83880; 84439; 84443; 84481; 84484; 85025; 85610; 85730; 86376; 87040; 87086; 87804; 93005; 93306; 93970; 94640; 94660; 94664; 96365; 96367; 97162; 99291; J0885; J1720; J1815; J1956; J2920; J2930; J3105; J3475; J7050; J7512; J7620; J7626; Q0163; Q9967